=== PATIENT | male | born 1950 | race Caucasian/White ===

== ENCOUNTER 2016-09-14 13:01 | Emergency (ER) | payer OTHER, MEDICARE ==
[2016-09-14] MEDS ORDERED: ASPIRIN 81 MG TABLET, CHEWABLE PO ONE (13:21)
[2016-09-14 14:11] LABS: PROTHROMBIN TIME 24.7 SEC (11.4-15.4)
[2016-09-14 14:25] LABS: ABSOLUTE BASOPHILS # (AUTO) 0.1 10^3/uL (0.0-0.2); ABSOLUTE EOSINOPHILS # (AUTO) 0.2 10^3/uL (0.0-0.6); ABSOLUTE LYMPHOCYTES (AUTO) 1.7 10^3/uL (0.5-4.7); ABSOLUTE MONOCYTES (AUTO) 0.4 10^3/uL (0.1-1.4); ABSOLUTE NEUT (AUTO) 3.8 10^3/uL (1.7-8.2); BASOPHILS % (AUTO) 0.8 % (0-2); EOSINOPHILS % (AUTO) 3.2 % (0-6); HEMATOCRIT 28.8 % (37.9-51.0); HEMOGLOBIN 9.9 g/dL (13.5-17.0); HGB HCT DIFFERENCE 0.9; LYMPHOCYTES % (AUTO) 27.2 % (13-45); MEAN CORPUSCULAR HEMOGLOBIN 31.3 pg (27.0-33.4); MEAN CORPUSCULAR HGB CONC 34.4 g/dL (32.0-36.0); MEAN CORPUSCULAR VOLUME 91 fl (80-97); MONOCYTES % (AUTO) 6.9 % (3-13); RED BLOOD COUNT 3.16 10^6/uL (4.35-5.55); RED CELL DISTRIBUTION WIDTH 15.6 % (11.5-14.0); SEGMENTED NEUTROPHILS % (AUTO) 61.9 % (42-78); WHITE BLOOD COUNT 6.1 10^3/uL (4.0-10.5)
[2016-09-14 14:26] LABS: ALANINE AMINOTRANSFERASE 28 U/L (21-72); ALBUMIN 3.6 g/dL (3.5-5.0); ALKALINE PHOSPHATASE 64 U/L (38-126); ANION GAP 8 (5-19); ASPARTATE AMINO TRANSFERASE 28 U/L (17-59); BILIRUBIN,TOTAL 0.8 mg/dL (0.2-1.3); BLOOD UREA NITROGEN 23 mg/dL (7-20); CALCIUM 8.7 mg/dL (8.4-10.2); CARBON DIOXIDE 28 mmol/L (22-30); CHLORIDE 100 mmol/L (98-107); CREATINE KINASE 394 U/L (55-170); CREATININE RESULT 1.84 mg/dL (0.52-1.25); GLUCOSE 85 mg/dL (75-110); POTASSIUM 3.9 mmol/L (3.6-5.0); SODIUM 135.8 mmol/L (137-145); TOTAL PROTEIN 6.8 g/dL (6.3-8.2)
[2016-09-14 14:46] LABS: CREATINE KINASE MB 3.54 ng/mL (<4.55); TROPONIN I < 0.012 ng/mL
[2016-09-14] MEDS ORDERED: NORMAL SALINE 1000 ML 500 ML IV ONE (16:50)
--- NOTE | 2016-09-14 17:00 | ER Document Report ---
ED General - General Chief Complaint: Near Syncope Stated Complaint: WEAKNESS - HPI Patient complains to provider of: general weakness Notes: Patient with history at her fibrillation currently is on Coumadin coming in for generalized weakness. Initial report was that patient had a near syncopal episode. Family at bedside states patient had no passing out episode states that he's been generally weak has been using a cane for last few days and has been had some episodes where he falls forward due to the weakness. Denies any head trauma denies any loss of consciousness. Patient denies any chest pain abdominal pain nausea vomiting diarrhea prior to after or during these episodes. Patient upon evaluation is requesting to leave. Past Medical History - Social History Smoking Status: Unknown if Ever Smoked Family History: Reviewed & Not Pertinent - Past Medical History Cardiac Medical History: Reports: Hx Atrial Fibrillation, Hx Hypertension - Immunizations Hx Diphtheria, Pertussis, Tetanus Vaccination: No Review of Systems - Review of Systems Constitutional: Weakness EENT: No symptoms reported Cardiovascular: No symptoms reported Respiratory: No symptoms reported Gastrointestinal: No symptoms reported Genitourinary: No symptoms reported Male Genitourinary: No symptoms reported Musculoskeletal: No symptoms reported Skin: No symptoms reported Hematologic/Lymphatic: No symptoms reported Neurological/Psychological: No symptoms reported -: Yes All other systems reviewed and negative Physical Exam - Vital signs Vitals: Resp BP Pulse Ox 14 108/64 95 09/14/16 13:20 09/14/16 13:20 09/14/16 13:20 Interpretation: Normal - General General appearance: Appears well, Alert - HEENT Head: Normocephalic, Atraumatic Eyes: Normal Pupils: PERRL - Respiratory Respiratory status: No respiratory distress Chest status: Nontender Breath sounds: Normal Chest palpation: Normal - Cardiovascular Rhythm: Regular Heart sounds: Normal auscultation Murmur: No - Abdominal Inspection: Normal Distension: No distension Bowel sounds: Normal Tenderness: Nontender Organomegaly: No organomegaly - Back Back: Normal, Nontender - Extremities General upper extremity: Normal inspection, Nontender, Normal color, Normal ROM , Normal temperature General lower extremity: Normal inspection, Nontender, Normal color, Normal ROM , Normal temperature, Normal weight bearing. No: Darshana's sign - Neurological Neuro grossly intact: Yes Cognition: Normal Orientation: AAOx4 [place] Coma Scale Eye Opening: Spontaneous [place] Coma Scale Verbal: Oriented [place] Coma Scale Motor: Obeys Commands Ruth Coma Scale Total: 15 Speech: Normal Cranial nerves: Normal Cerebellar coordination: Normal Motor strength normal: LUE, RUE, LLE, RLE Sensory: Normal - Psychological Associated symptoms: Normal affect, Normal mood - Skin Skin Temperature: Warm Skin Moisture: Dry Skin Color: Normal Course - Re-evaluation Re-evalutation: 09/14/16 19:13 Patient's evaluation does show anemia no need for transfusion at this time. Patient does have elevation in his BUN/creatinine. I have no laboratory to compare this to. Patient states he has a history of anemia has a history of some renal insufficiency. Suggested patient more water possible dehydration. Initially give the patient a 500 mL bolus however after evaluation patient states he feels fine did pull off all of his monitor equipment and pulled off his IV stated he was ready to be discharged home. - Vital Signs Vital signs: Temp Pulse Resp BP Pulse Ox 98.6 F 88 14 123/77 99 09/14/16 17:08 09/14/16 17:08 09/14/16 17:08 09/14/16 17:08 09/14/16 17:08 - Laboratory Result Diagrams: 09/14/16 13:48 09/14/16 13:48 Laboratory results interpreted by me: 09/14/16 09/14/16 09/14/16 13:48 13:48 13:48 RBC 3.16 L Hgb 9.9 L Hct 28.8 L RDW 15.6 H Plt Count 96 L PT 24.7 H Sodium 135.8 L BUN 23 H Creatinine 1.84 H Est GFR ( Amer) 45 L Est GFR (Non-Af Amer) 37 L Creatine Kinase 394 H Discharge - Discharge Clinical Impression: Dehydration, Renal insufficiency, Generalized weakness Condition: Good Disposition: HOME, SELF-CARE Instructions: Weakness ([facility]), Kidney Failure ([facility]), Dehydration ([facility]) Additional Instructions: Follow-up with your primary care physician. At this time your lab work is consistent with dehydration there is some elevation in your kidney function test. I'll recommend a follow-up with your in one week to have these repeated. Also recommend that we transition you to a walker Prescriptions: Walker [Ultra-Light Rollator] 1 each MC DAILY #1 each Referrals: ARNULFO BENSON DO [Primary Care Provider] - Follow up in 3-5 days
[2016-09-14 17:08] VITALS: BP 123/77
--- NOTE | 2016-09-15 08:12 | EKG REPORT ---
SEVERITY:- ABNORMAL ECG - ATRIAL FIBRILLATION NONSPECIFIC T ABNORMALITIES, ANT-LAT LEADS : Confirmed by: Mc Cabrales MD 15-Sep-2016 08:11:36
== END 2016-09-14 17:09 | disposition home or self-care (01) ==
LOC: ER 13:01
DX: D64.9 Anemia, unspecified (principal); E86.0 Dehydration; R53.1 Weakness; N28.9 Disorder of kidney and ureter, unspecified; I10 Essential (primary) hypertension; I48.91 Unspecified atrial fibrillation; Z79.01 Long term (current) use of anticoagulants; Z91.81 History of falling
CPT/HCPCS: 93005; 99285; 36415; 82553; 82550; 85025; 85610; 80053; 84484; 71010; 93010; J7030